=== PATIENT | female | born 1945 | race Two or more races ===

== ENCOUNTER 2018-12-01 20:21 | Emergency (ER) | payer OTHER ==
[~2018-12-01] VITALS: Ht 165.1 cm; Wt 46.9 kg
--- NOTE | 2018-12-01 20:52 | NUR ---
PT AMBULATORY FROM [facility] INTO ROOM AT THIS TIME W/ FAMILY MEMBER. AMBULATORY W/ CANE. PROVIDED SMALL URINE SAMPLE, ASSITED INTO GOWN AND CONTINUOUS PULSE OX.
--- NOTE | 2018-12-01 20:55 | NUR ---
PT ONTO ENTERIC PRECAUTIONS D/T CONCERN FOR CDIFF PER ED PROVIDER. EDUCATED PT AND FAMILY MEMBER ON PROCESS AND THEY DENIED QUESTIONS OR CONCERNS.
[2018-12-01 20:58] LABS: MEAN CORPUSCULAR HEMOGLOBIN 31.7 pg (27.0-34.8); MEAN CORPUSCULAR HGB CONC 33.4 g/dL (32.4-35.8); MEAN CORPUSCULAR VOLUME 94.9 fL (80-100); PLATELET COUNT 463 x10^3/uL (130-400); RED BLOOD COUNT 4.17 x10^6/uL (3.82-5.3)
[2018-12-01 21:03] LABS: ALBUMIN 2.3 g/dL (3.4-5.0); ANION GAP 13 mmol/L (5-15); CALCIUM 7.9 mg/dL (8.5-10.1); CHLORIDE 109 mmol/L (98-107); CREATININE 1.52 mg/dL (0.55-1.02)
[2018-12-01] MEDS ORDERED: ONDANSETRON 2MG/ML, 2ML ONE (21:17)
[2018-12-01] MEDS ORDERED: MORPHINE SULFATE 4 MG/ML, 1ML ONE (21:17)
[2018-12-01 21:18] LABS: BAND#(MANUAL) 8.35 x10^3/uL; BANDS%(MANUAL) 29 % (0-7); LYMPH#(MANUAL) 1.44 x10^3/uL (1-3.4); LYMPHS% (MANUAL) 5 % (22-44); MD YES; MONOS#(MANUAL) 0.29 x10^3/uL (0.3-2.7); MONOS% (MANUAL) 1 % (2-9); SEG#(MANUAL) 18.72 x10^3/uL (1.8-6.8); SEGS% (MANUAL) 65 % (42-75)
[2018-12-01 21:19] LABS: <PLATELET ESTIMATE> INCREASED; <PLT MORPHOLOGY> NORMAL PLT MORPH; <RBC MORPHOLOGY> NORMAL
[2018-12-01] MEDS: MORPHINE SULFATE 4 MG/ML, 1ML IVPush PRN (21:29)
[2018-12-01] MEDS ORDERED: SODIUM CHLORIDE 0.9% 1,000ML IVBOLUS ONE (21:30)
[2018-12-01] MEDS ORDERED: ONDANSETRON 2MG/ML, 2ML IVPush ONE (21:30)
[2018-12-01 21:33] LABS: MICROSCOPIC INDICATED
--- NOTE | 2018-12-01 21:42 | NUR ---
PT TO CT VIA STRETCHER AT THIS TIME
[2018-12-01 21:52] LABS: CULTURE INDICATED? NO
[2018-12-01] MEDS ORDERED: OMNIPAQUE 350 MG/ML, 100ML BOTTLE ONE (21:55)
[2018-12-01] MEDS ORDERED: PIPERACILLIN/TAZO/PMX 3.375GM 50 ML IV ONE (22:00)
--- NOTE | 2018-12-01 22:05 | NUR ---
PT RESTING IN BED AT THIS TIME. VSS. PENDING BLOOD CULTURE COLLECTION BY LAB PRIOR TO ABX ADMINISTRATION
[2018-12-01] MEDS ORDERED: PIPERACILLIN/TAZO/PMX 3.375GM 50 ML ONE (22:39)
--- NOTE | 2018-12-01 23:03 | NUR ---
PT RESTING IN BED W/O DISTRESS, UNABLE TO PROVIDE STOOL SAMPLE AT THIS TIME.
--- NOTE | 2018-12-01 23:58 | NUR ---
PT RESTING IN BED W/ SIDE RAILS UP X 2 ON CONTINUOUS PULSE OX. CALL LIGHT IN REACH. PT DENIES PAIN OR NAUSEA AT THIS TIME. SLEEPING W/ EVEN RESPIRATIONS BUT EASILY ROUSABLE.
--- NOTE | 2018-12-01 23:59 | NUR ---
TP: SPOKE WITH ALICIA AT [facility]. PT TO BE TRANSFERRED PENDING ACCEPTANCE BY ADMITTING MD DR REMY. INFORMATION FAXED TO TRANSFER CENTER
--- NOTE | 2018-12-02 00:33 | NUR ---
PT AGREES TO TRANSFER TO [facility], DENIES QUESTIONS/CONCERNS/COMPLAINTS AT THIS TIME.
--- NOTE | 2018-12-02 01:01 | NUR ---
PT C/O RETURNING PAIN. RESTING IN BED W/O DISTRESS. DISCUSSED W/ ERMD. GAVE REPORT TO SETH MALDONADO AND RELINQUISHED CARE.
[2018-12-02] MEDS ORDERED: MORPHINE SULFATE 4 MG/ML, 1ML ONE (01:04)
[2018-12-02] MEDS: MORPHINE SULFATE 4 MG/ML, 1ML IVPush PRN (01:07)
--- NOTE | 2018-12-02 01:07 | NUR ---
PT CONTINUES TO BE UNABLE TO PROVIDE STOOL SAMPLE. MEDICATED FOR PAIN, ON CONTINUOUS PULSE OX, SIDE RAILS UP X 2.
--- NOTE | 2018-12-02 01:26 | NUR ---
TP: [facility] WILL ACCEPT PT. DR HAZEL TO CONSULT GEN SURG. BED ASSIGNMENT WILL BE GIVEN AFTER GENERAL SURGERY CONSULTED.
--- NOTE | 2018-12-02 01:27 | NUR ---
REPORT FROM PABLO ANN. PT RESTING WITH NO NEEDS AT THIS TIME CALL LIGHT IN REACH
--- NOTE | 2018-12-02 02:47 | NUR ---
REPORT TO ARABELLA ANN AT [facility]. PT SLEEPING WITH NO NEEDS AT THIS TIME. CALL LIGHT IN REACH
[2018-12-02 02:48] VITALS: BP 129/71
== END 2018-12-02 03:30 | disposition short-term general hospital (02) ==
LOC: ED 23:27 → UNDOADMIN 23:45 → EDIP 23:45 → ED 12-02 03:30
DX: R19.7 Diarrhea, unspecified (principal); R10.9 Unspecified abdominal pain; I10 Essential (primary) hypertension; Z87.19 Personal history of other diseases of the digestive system; Z90.10 Acquired absence of unspecified breast and nipple
CPT/HCPCS: 36415; 74177; 80048; 81001; 82040; 83605; 84145; 85025; 87040; 96361; 96374; 96375; 96376; 99285; J2270; J2405; J2543; J7030; Q9967

== ENCOUNTER 2019-05-22 14:49 | Outpatient (CLI) | payer MEDICARE ==
[2019-05-22 15:52] LABS: ALANINE AMINOTRANSFERASE 29 U/L (12-78); ALBUMIN 3.5 g/dL (3.4-5.0); ANION GAP 7 mmol/L (5-15); CALCIUM 8.7 mg/dL (8.5-10.1); CHLORIDE 111 mmol/L (98-107); CREATININE 1.03 mg/dL (0.55-1.02)
[2019-05-22 15:54] LABS: ALKALINE PHOSPHATASE 94 U/L (45-117); BILIRUBIN,TOTAL 0.3 mg/dL (0.2-1.0); TOTAL PROTEIN 7.7 g/dL (6.4-8.2)
[2019-05-23] MEDS ORDERED: METO50TA82 PO (08:07)
[2019-05-23] MEDS ORDERED: LOSA50TA14 PO (08:07)
== END 2019-05-22 23:59 | disposition home or self-care (01) ==
LOC: STAR 14:49
PROVIDERS: ATTEND Internal Medicine Geriatric Medicine
DX: Z01.818 Encounter for other preprocedural examination (principal)
CPT/HCPCS: 36415; 80053; 93005

== ENCOUNTER 2019-05-25 09:49 | Day surgery (SDC) | payer MEDICARE ==
[~2019-05-25] VITALS: Ht 162.6 cm; Wt 50.6 kg
[~2019-05-25 09:49] MED LIST: LOSA50TA14 PO; METO50TA82 PO
[2019-05-25 10:20] VITALS: BP 156/84
[2019-05-25] MEDS ORDERED: LACTATED RINGERS 1,000 ML IV SCH (10:36)
[2019-05-25] MEDS ORDERED: FENTANYL PF 100 MCG/2ML ONE (14:36)
[2019-05-25] MEDS ORDERED: MIDAZOLAM 1 MG/ML, 2ML ONE (14:36)
[2019-05-25] MEDS ORDERED: PHENYLEPHRINE 10 MG/ML ONE (14:42)
[2019-05-25] MEDS ORDERED: PROPOFOL 10 MG/ML, 20ML ONE (14:42)
[2019-05-25] MEDS ORDERED: OXYcodone 5 MG/5 ML ORAL.SOL UDC PO PRN (15:30)
[2019-05-25] MEDS ORDERED: HALOPERIDOL 5 MG/ML IV PRN (15:30)
[2019-05-25] MEDS ORDERED: FENTANYL PF 100 MCG/2ML IV PRN (15:30)
[2019-05-25] MEDS ORDERED: HYDROmorphone 2 MG/ML, 1ML IVPush PRN (15:30)
[2019-05-25] MEDS ORDERED: MEPERIDINE/PF 25MG/ML,1ML IVPush PRN (15:30)
[2019-05-25] MEDS ORDERED: hydrALAzine 20 MG/ML, 1ML IV PRN (15:30)
== END 2019-05-25 17:05 | disposition home or self-care (01) ==
LOC: OUT 09:49
PROVIDERS: ATTEND Internal Medicine Geriatric Medicine
DX: A04.72 Enterocolitis due to Clostridium difficile, not specified as recurrent (principal); Z93.2 Ileostomy status
CPT/HCPCS: 45378; G0455; J2250; J2370; J2704; J3010

== ENCOUNTER 2019-06-08 10:38 | Outpatient (CLI) | payer MEDICARE, BC ==
[2019-06-08] MEDS ORDERED: LOSA1TAB19 PO (11:03)
[2019-06-08] MEDS ORDERED: TRAM50TA2 PO (11:03)
== END 2019-06-08 23:59 | disposition home or self-care (01) ==
LOC: STAR 10:38
PROVIDERS: ATTEND Colon & Rectal Surgery
DX: Z02.9 Encounter for administrative examinations, unspecified (principal)

== ENCOUNTER 2019-06-15 06:07 | Inpatient (IN) | payer BC, MEDICARE ==
[~2019-06-15] VITALS: Ht 165.1 cm; Wt 52.0 kg
[~2019-06-15 06:07] MED LIST changes: +LOSA1TAB19 PO; +TRAM50TA2 PO
[2019-06-15] MEDS ORDERED: LACTATED RINGERS 1,000 ML IV SCH ×2 (06:43→13:30)
[2019-06-15] MEDS ORDERED: SUCCINYLCHOLINE 20 MG/ML, 10ML ONE (06:52)
[2019-06-15] MEDS ORDERED: GLYCOPYRROLATE 0.2MG/1ML, 5ML ONE (06:52)
[2019-06-15] MEDS ORDERED: CEFAZOLIN 1,000 MG ONE (06:52)
[2019-06-15] MEDS ORDERED: DEXAMETHASONE 4 MG/ML, 1ML ONE (06:52)
[2019-06-15] MEDS ORDERED: ROCURONIUM 10MG/ML,5ML ONE (06:52)
[2019-06-15] MEDS ORDERED: MIDAZOLAM 1 MG/ML, 2ML ONE (06:52)
[2019-06-15] MEDS ORDERED: ONDANSETRON 2MG/ML, 2ML ONE (06:52)
[2019-06-15] MEDS ORDERED: NEOSTIGMINE 1 MG/ML, 10ML ONE (06:52)
[2019-06-15] MEDS ORDERED: PROPOFOL 10 MG/ML, 20ML ONE (06:52)
[2019-06-15] MEDS ORDERED: FENTANYL PF 100 MCG/2ML ONE ×2 (06:52→08:58)
[2019-06-15] MEDS ORDERED: LIDOCAINE GEL 2%, 5ML ONE (06:54)
[2019-06-15] MEDS ORDERED: BUPIVACAINE/PF-EPI 0.5% 1:200K ONE (06:58)
[2019-06-15] MEDS ORDERED: BUPIVACAINE/PF-EPI 0.5% 1:200K INFIL ONE (07:47)
[2019-06-15] MEDS ORDERED: PROMETHAZINE 25 MG/ML, 1ML IV PRN (08:00)
[2019-06-15] MEDS ORDERED: ACETAMINOPHEN 325 MG TABLET PO PRN (08:00)
[2019-06-15] MEDS ORDERED: MORPHINE SULFATE 4 MG/ML, 1ML IVPush PRN ×2 (08:00→13:00)
[2019-06-15] MEDS ORDERED: CEFOTETAN PMX 2GM/50ML 50 ML ONE (08:01)
[2019-06-15] MEDS ORDERED: KETOROLAC 30 MG/1 ML ONE (08:43)
[2019-06-15] MEDS ORDERED: OXYcodone 5 MG/5 ML ORAL.SOL UDC ONE (08:43)
[2019-06-15] MEDS: FENTANYL PF 100 MCG/2ML IV PRN ×3 (09:00→09:10)
[2019-06-15] MEDS ORDERED: KETOROLAC 30 MG/1 ML IV PRN (09:30)
[2019-06-15] MEDS ORDERED: OXYcodone 5 MG/5 ML ORAL.SOL UDC PO PRN (09:30)
[2019-06-15] MEDS ORDERED: SCOPOLAMINE 1MG PATCH TD PRN (13:00)
[2019-06-15] MEDS ORDERED: CALCIUM CARBONATE 500 MG TAB.CHEW PO PRN (13:00)
[2019-06-15] MEDS ORDERED: ONDANSETRON 2MG/ML, 2ML IV PRN (13:00)
[2019-06-15] MEDS ORDERED: HALOPERIDOL 5 MG/ML IVPush PRN (13:00)
[2019-06-15] MEDS ORDERED: LORazepam 2 MG/ML, 1ML IVPush PRN (13:00)
[2019-06-15] MEDS ORDERED: OXYcodone IR 5MG TABLET PO PRN (13:00)
[2019-06-15] MEDS ORDERED: DEXAMETHASONE 4 MG/ML, 1ML IVPush PRN (13:00)
[2019-06-15] MEDS ORDERED: DIPHENHYDRAMINE 50 MG/ML, 1ML IVPush PRN (13:00)
[2019-06-15] MEDS ORDERED: LORazepam 1MG TABLET PO PRN (13:00)
[2019-06-15] MEDS ORDERED: TRAZODONE 50MG TABLET PO PRN (13:00)
[2019-06-15] MEDS: ACETAMINOPHEN 500 MG TABLET PO SCH ×2 (13:22→18:41)
[2019-06-15 13:25] VITALS: BP 130/72
[2019-06-15] MEDS ORDERED: DIPHENHYDRAMINE 25 MG CAPSULE PO PRN (13:30)
[2019-06-15] MEDS: KETOROLAC 30 MG/1 ML IVPush SCH ×2 (16:42→23:29)
[2019-06-15] MEDS ORDERED: SODIUM CHLORIDE IVF PRN (18:30)
[2019-06-15 19:03] VITALS: BP 168/94
[2019-06-16 00:38] VITALS: BP 127/62
[2019-06-16] MEDS: ACETAMINOPHEN 500 MG TABLET PO SCH ×3 (01:00→12:54)
[2019-06-16 03:47] LABS: BASOPHILS # (AUTO) 0.02 x10^3/uL (0-0.1); BASOPHILS % (AUTO) 0 % (0-1); EOSINOPHILS % (AUTO) 0 % (1-7); LYMPHOCYTES # (AUTO) 1.29 x10^3/uL (1-3.4); LYMPHOCYTES % (AUTO) 9 % (22-44); MD NO; MEAN CORPUSCULAR HEMOGLOBIN 31.3 pg (27.0-34.8); MEAN CORPUSCULAR HGB CONC 33.5 g/dL (32.4-35.8); MEAN CORPUSCULAR VOLUME 93.2 fL (80-100); MEAN PLATELET VOLUME 8.1 fL (7.4-10.4); MONOCYTES # (AUTO) 0.87 x10^3/uL (0.2-0.8); MONOCYTES % (AUTO) 6 % (2-9); NEUTROPHILS # (AUTO) 11.61 x10^3/uL (1.8-6.8); NEUTROPHILS % (AUTO) 84 % (42-75); PLATELET COUNT 252 x10^3/uL (130-400); RED CELL DISTRIBUTION WIDTH 13.8 % (9.6-15.2)
[2019-06-16 03:57] LABS: ALANINE AMINOTRANSFERASE 26 U/L (12-78); ALBUMIN 3.3 g/dL (3.4-5.0); ANION GAP 6 mmol/L (5-15); CALCIUM 8.4 mg/dL (8.5-10.1); CHLORIDE 110 mmol/L (98-107); CREATININE 1.35 mg/dL (0.55-1.02)
[2019-06-16 04:00] LABS: ALKALINE PHOSPHATASE 83 U/L (45-117); BILIRUBIN,TOTAL 0.5 mg/dL (0.2-1.0); TOTAL PROTEIN 7.2 g/dL (6.4-8.2)
[2019-06-16 04:12] VITALS: BP 156/76
[2019-06-16] MEDS: KETOROLAC 30 MG/1 ML IVPush SCH ×2 (05:48→10:54)
[2019-06-16 06:49] VITALS: BP 152/78
[2019-06-16] MEDS ORDERED: ENOXAPARIN 40 MG/0.4 ML SQ SCH (09:00)
[2019-06-16] MEDS ORDERED: OXYC-302 PO (10:56)
[2019-06-16 14:55] VITALS: BP 153/66
[2019-07-07] MEDS ORDERED: VANC1VIA3 PO (14:59)
== END 2019-06-16 16:25 | disposition home or self-care (01) | DRG 331 ==
LOC: OUT 06:07 → 4NE 11:50 → OUT 13:26 → DCLOUNGE 06-16 16:14
PROVIDERS: ADMIT Colon & Rectal Surgery; ATTEND Colon & Rectal Surgery
PROC: 0DBB0ZZ Excision of Ileum, Open Approach (ICD-10-PCS; principal; 2019-06-15 07:30)
DX: Z43.2 Encounter for attention to ileostomy (principal); I10 Essential (primary) hypertension; E78.5 Hyperlipidemia, unspecified; K52.9 Noninfective gastroenteritis and colitis, unspecified
CPT/HCPCS: 36415; 80053; 83735; 85025; 88304; G0378; J0690; J1100; J1650; J1885; J2250; J2405; J2704; J2710; J3010; J0330; J3490; J7120